=== PATIENT | female | born 1930 | race Caucasian/White ===

== ENCOUNTER 2018-04-07 11:33 | Observation (INO) | payer MEDICARE, OTHER ==
[2018-04-07 11:52] LABS: BASOPHILS % 0.5 (0.0-1.5); EOSINOPHILS % 2.1 % (0.0-6.8); MEAN CORPUSCULAR HEMOGLOBIN 29.7 pg (28.0-34.0); MEAN CORPUSCULAR VOLUME 98.2 fl (80.0-100.0); MONOCYTES % 4.4 % (0.0-11.0)
[2018-04-07 12:05] LABS: eGFR (African) > 60; eGFR (Non-African) > 60
[2018-04-07 12:27] LABS: APPEARANCE,URINE CLOUDY (CLEAR); COLOR,URINE YELLOW (YELLOW); OCCULT BLOOD,URINE TRACE-INTACT (NEGATIVE)
[2018-04-07] MEDS ORDERED: LIDOCAINE 1%/EPINEPHRINE 20ML VIAL IJ ONE ×2 (12:34→12:35)
--- NOTE | 2018-04-07 12:34 | ED Physician Documentation ---
Fall - HISTORIAN Historian: patient - HPI Stated Complaint: Fall with Head Injury Chief Complaint: Fall Onset: today Where: other ([facility]) Context: other (un-witnessed) Injury to Right Extremity: none Injury to Left Extremity: none Further Comments: yes (88 year old female patient brought in from [facility] after a fall. Patient was found on floor by staff. Had been up and walked to breakfast this morning. Baseline - up walking, speaks in 3-4 word sentences, able to feed herself, intermittent confusion per daughter.) - ROS CONST: no problems (Patient unable to contribute to ROS due to altered mental status. ) - PAST HX Past History: A-Fib (chronic,), other (incontinence, CVA 2015, falls, dementia, HLD, insomnia, HTN, frequent UTIs) Allergies/Adverse Reactions: Allergies Allergy/AdvReac Type Severity Reaction Status Date / Time No Known Allergies Allergy Unverified 04/15/14 08:35 Home Medications: Ambulatory Orders Medication Instructions Recorded Acetaminophen [Tylenol] 650 mg PO Q6 PRN 04/07/18 Apixaban [Eliquis] 5 mg PO BID 04/07/18 Melatonin 5 mg PO HS 04/07/18 Metoprolol Succinate [Toprol Xl] 50 mg PO DAILY 04/07/18 Simvastatin [Simvastatin] 40 mg PO HS 04/07/18 - SOCIAL HX Smoking History: non-smoker - FAMILY HX Family History: denies: none - VITAL SIGNS Vital Signs: Vital Signs Temp Pulse Resp BP Pulse Ox 95.7 F L 110 H 16 132/82 93 04/07/18 11:35 04/07/18 12:11 04/07/18 11:35 04/07/18 11:35 04/07/18 12:11 - REVIEWED ASSESSMENTS Nursing Assessment Reviewed: Yes Vitals Reviewed: Yes Procedures Wound Location: face Wound's Depth, Shape: irregular Betadine Prep?: No (chlorhexidine) Anesthesia: Lidocaine w/ Epi Volume of Anesthetic: 4 Wound Repaired With: sutures, steri-strips Suture Size/Type: 6:0 Number of Sutures: 8 Layer Closure?: No Progress: Procedure Note laceration: Length: 2 cm eye laceration Location: lateral to left eye Wound cleaned with chlorhexidine and NS; anesthetized with Lidocaine 1% with epi and Neut - 4cc - patient tolerated well. Irrigated with 200NS; no foreign body noted Closed using sterile technique, interrupted sutures 6.0 ethilon x 5 stitches; additional 3 sutures placed to tack down skin tear; steri strips applied to skin tear Tetanus: Given in ER today Progress - Progress Progress: [address] Garcia for admission - will keep patient as observation; IV antibiotics; PT/OT consult, neuro checks. Remain on tele due to chronic A Fib. Unwitnessed fall; cannot rule out dysrhymia. Daughter at bedside; agrees with admission. - EKG/XRAY/CT EKG: rhythm (AFib; rate 109) ED Results Lab/Radiology - Lab Results Lab Results: Lab Results 04/07/18 04/07/18 04/07/18 12:35 11:45 11:45 WBC 6.85 K/ul K/ul (4.00-12.00) RBC 4.18 M/ul M/ul (3.90-5.20) Hgb 12.4 g/dL g/dL (12.0-16.0) Hct 41.0 % % (34.5-46.5) MCV 98.2 fl fl (80.0-100.0) MCH 29.7 pg pg (28.0-34.0) MCHC 30.3 g/dL g/dL (30.0-36.0) RDW 14.1 % % (11.3-14.3) Plt Count 251 K/mm3 K/mm3 (130-400) Neut % (Auto) 61.0 % % (39.0-79.0) Lymph % (Auto) 30.6 % % (16.0-50.0) Patrick % (Auto) 4.4 % % (0.0-11.0) Eos % (Auto) 2.1 % % (0.0-6.8) Baso % (Auto) 0.5 (0.0-1.5) Neut # (Auto) 6.9 # k/uL # k/uL (1.4-7.7) Lymph # (Auto) 4.2 # k/uL H # k/uL (0.6-4.0) Patrick # (Auto) 2.1 # k/uL H # k/uL (0.0-0.9) Eos # (Auto) 0.3 # k/uL # k/uL (0.0-0.6) Baso # (Auto) 0.2 # k/uL # k/uL (0.0-0.5) Reactive Lymphs % 1.4 % % (0.0-5.0) Reactive Lymphs # 0.1 # k/uL # k/uL (0.0-0.8) Sodium 141 mmol/L mmol/L (136-145) Potassium 4.2 mmol/L mmol/L (3.5-5.1) Chloride 104 mmol/L mmol/L (98-107) Carbon Dioxide 30 mmol/L mmol/L (22-30) BUN 30 mg/dL H mg/dL (7-17) Creatinine 0.70 mg/dL mg/dL (0.52-1.04) Estimated Creat Clear 77 Est GFR ( Amer) > 60 (60 - ) Est GFR (Non-Af Amer) > 60 (60 - ) Glucose 104 mg/dL mg/dL (74-106) Calcium 8.7 mg/dL mg/dL (8.4-10.2) Total Bilirubin 0.3 mg/dL mg/dL (0.2-1.3) AST 23 U/L U/L (15-46) ALT 28 U/L U/L (13-69) Alkaline Phosphatase 79 U/L U/L (38-126) Total Protein 6.9 g/dL g/dL (6.3-8.2) Albumin 3.6 g/dL g/dL (3.5-5.0) Urine Color Yellow (YELLOW) Urine Appearance Cloudy H (CLEAR) Urine pH 7.0 (5.0 - 8.0) Ur Specific Lesage 1.025 (1.010-1.030) Urine Protein Trace mg/dL H mg/dL (NEGATIVE) Urine Ketones Negative mg/dL mg/dL (NEGATIVE) Urine Occult Blood Trace-intact H (NEGATIVE) Urine Nitrite Negative (NEGATIVE) Urine Bilirubin Negative (NEGATIVE) Urine Urobilinogen 1.0 Eu Eu (0.2-1.0) Ur Leukocyte Esterase 1+ H (NEGATIVE) Urine Glucose Negative mg/dL mg/dL (NEGATIVE) - Radiology Radiology Impressions: Examination: CT head without contrast History: FALL TODAY; ALTERED MENTAL STATUS (Hx) Comparison exam: None available are directed view. Technique: Noncontrast head CT protocol. Findings: Ventricles and sulci are prominent. Cerebrocerebellar parenchyma demonstrates periventricular low attenuation consistent with small vessel disease. Moderate low density regions involving the right parietal/occipital lobe. No evidence for parenchymal hemorrhage. No evidence for mass or mass effect. No midline shift. No extra axial fluid collections. Partial visualization of the paranasal sinuses, mastoid air cells, orbits, skull and scalp without gross irregularity. Anterior falx calcifications. Impression: Advanced age related changes with low density areas involving the right parietal/occipital lobe. No hemorrhage. Correlation with older exams recommended, when become available, to confirm stability of the presumed age related changes and old parenchymal infarcts. Electronically signed on Apr 07, 2018 12:24:51 PM CDT by: Stanley Stephenson - Orders Orders: ED Orders Category Date Time Status Cleanse with NS and Chlorhexid 1T Care 04/07/18 11:41 Active Continuous EKG monitoring Q30M Care 04/07/18 11:41 Active Continuous Pulse Oximetry Q30M Care 04/07/18 11:[address] IV Lock 1T Care 04/07/18 11:[address] BRAIN W/O CONTRAST Stat Exams 04/07/18 Ordered CBC/PLATELET/DIFF Stat Lab 04/07/18 11:45 Completed CMP Stat Lab 04/07/18 11:45 Completed UA MACRO DIP ONLY Stat Lab 04/07/18 12:35 Completed URINE CULTURE Stat Lab 04/07/18 12:35 Received Fall Physical Exam - Physical Exam General Appearance: lethargic Head: trauma ( abrasion to left lateral eye; skin tear to left cheek area) Neck: non-tender, painless ROM, trachea midline Eye: STANTON, lids & conjunct. nml ENT: nml external inspection, no dental injury, no oral injury, airway nml Resp/CVS: chest non-tender, no ecchymosis, breath sounds nml, no resp. distress , other (Irregularly irregular - chronic A Fib) Abdomen: soft, no organomegaly, normal bowel sounds, no abdominal bruit, no distension Neuro: other (Gross motor tremor noted; will move upper extremities purposefully , difficulty following commands; speech difficult to understand; ) Skin: pallor, other (poor turgor; 2 cm laceration lateral to left eye; left cheek area with 3cm x 4 cm skin tear) Back: normal inspection Extremities: atraumatic, pelvis stable, hips non-tender, no pedal edema, nml color/temp, other (severe generalized weakness; GONZALES x4; ) - Radha Coma Score Eyes Open: Spontaneous Speech: Confused (4) Motor: Localizes to Pain (5) Discharge Clincal Impression: Atrial fibrillation, Unwitnessed fall Altered mental status Qualifiers: Altered mental status type: disorientation Qualified Code(s): R41.0 - Disorientation, unspecified UTI (urinary tract infection) Qualifiers: Urinary tract infection type: acute cystitis Hematuria presence: with hematuria Qualified Code(s): N30.01 - Acute cystitis with hematuria Referrals: Jasper Garcia MD [Primary Care Provider] - 2 Days Condition: Fair Disposition: 09 ADMITTED INPATIENT Decision to Admit: [id number] Decision Time: 13:15
[2018-04-07] MEDS ORDERED: SODIUM BICARBONATE 2.4 MEQ VIAL INJ ONE (12:35)
[2018-04-07] MEDS ORDERED: cefTRIAXone SODIUM 1 GM in 0.9 % SODIUM CHLORIDE 100 ML IV ONE (13:36)
[2018-04-07] MEDS ORDERED: cefTRIAXone SODIUM 1 GM VIAL ONE (13:40)
[2018-04-07] MEDS ORDERED: DIPH,PERTUSS(ACELL),TET VAC/PF 0.5 ML DISP.SYRIN IM ONE (13:43)
[2018-04-07 14:56] VITALS: BMI 12.2
[2018-04-07] MEDS ORDERED: ACETAMINOPHEN 325 MG TABLET PO PRN (17:01)
--- NOTE | 2018-04-07 17:20 | History and Physical Report ---
History of Present Illnes - History of Present Illness Reason for Visit: Fall/head laceration History of Present Illness: This is an 88 year old female patient of mine from [facility] who had a fall today, and incurred a contusion/laceration to the left side of her head. She was brought to the ER for evaluation and repair of the laceration. In the ER, she had a CT scan of her head, which did not show any intracranial bleeding. She is very confused as is her baseline. Her labs were about at her baseline. She is admitted overnight for observation, with plans for us to discharge her back to the correction in the morning. - Past Medical History Cardiac: AFIB, HTN, Hyperlipidemia AUXILIARY EQUIPMENT OPERATOR: CVA (2015), Dementia, Vertigo Gastrointestinal: Constipation Musculoskeletal: Chronic low back pain, Other (osteoporosis) Renal/: Other (OAB) - Past Surgical History Past Surgical History: Hysterectomy - Past Social History Smoke: No Alcohol: None Drugs: None Lives: With Family () - Health Maintenance Health Maintenance: Cholesterol Influenza Vaccine: Current for this Influenza Season Pneumonia Vaccine: Yes Resuscitation Status: Resusciation Status Resuscitation Status Do Not Resuscitate - Unable to Obtain History Unable to Obtain: Yes Review of Systems - Review of Systems Constitutional: negative: Fever Eyes: negative: pain ENT: negative: Other Respiratory: negative: Other Cardiovascular: negative: Chest Pain Gastrointestinal: negative: Nausea Genitourinary: negative: Dysuria Musculoskeletal: negative: Neck Pain Skin: Rash Neurological: Weakness, Incoordination - Medications/Allergies Allergies/Adverse Reactions: Allergies Allergy/AdvReac Type Severity Reaction Status Date / Time No Known Allergies Allergy Unverified 04/15/14 08:35 Home Medications: Home Medications Acetaminophen [Tylenol] 650 mg PO Q6 PRN 04/07/18 Apixaban [Eliquis] 5 mg PO BID 04/07/18 Melatonin 5 mg PO HS 04/07/18 Metoprolol Succinate [Toprol Xl] 50 mg PO DAILY 04/07/18 Simvastatin [Simvastatin] 40 mg PO HS 04/07/18 Current Inpatient Medications: Current Inpatient Medications Acetaminophen (Tylenol) 650 mg PO Q4H PRN PRN Reason: Fever >101 Ceftriaxone Sodium 1 gm/ (Sodium Chloride) 50 mls @ 100 mls/hr IV Q24H SUDHA Melatonin (Melatonin) 9 mg PO HS SUDHA Metoprolol Succinate (Toprol Xl) 50 mg PO DAILY SUDHA Polyethylene Glycol (Miralax) 17 gm PO 1100 SUDHA Simvastatin (Zocor) 40 mg PO HS SUDHA Sodium Chloride (Normal Saline Flush) 3 ml IV BID SUDHA Exam - Exam Vital Signs: Vital Signs (72 hours) 04/07/18 04/07/18 04/07/18 13:34 13:38 13:50 Temperature 98.1 F Pulse Rate [ 97 H 78 Pulse ox] Respiratory 21 18 Rate Blood Pressure 127/89 118/68 [Right Arm] O2 Sat by Pulse 97 98 97 Oximetry 04/07/18 14:00 Temperature 98.1 F Pulse Rate [ 101 H Pulse ox] Respiratory 20 Rate Blood Pressure 127/89 [Right Arm] O2 Sat by Pulse 97 Oximetry General: Discheveled, Average Body Habits (confused) HEENT: Other (curvilinear laceration over her left cheek. It is well approximated with stitches and steri strips.) Neck: No: Stridor Lungs: Clear to auscultation Cardiovascular: Irregularly Irregular Murmur: Systolic Murmur Murmur Location: Left Sternal Boarder Heart Murmur Grade: II Abdomen: Normal bowel sounds, Soft, Other (some yeast under breasts) Genitourinary: No: Right Inguinal Hernia, Left Inguinal Hernia Male Genitourinary: No: Other Female Genitourinary: No: Other Integumentary: Other (yeast) Extremities: No clubbing, No cyanosis, No edema Neurological: Generalized Weakness Psych/Mental Status: Other (about at baseline) Assessment/Plan - Assessment/Plan (1) Unwitnessed fall Status: Acute Current Visit: Yes Assessment: with facial laceration Plan: Has been repaired in the ER May need to d/c Eliquis (2) Atrial fibrillation Status: Chronic Current Visit: Yes Assessment: Chronic and anticoagulated (3) CVA, old, ataxia Status: Acute Current Visit: No Assessment: Chronic, no intracranial bleeding (4) Dementia Status: Acute Current Visit: No Qualifiers: Dementia type: Alzheimer's disease Dementia behavioral disturbance: without behavioral disturbance Qualified Code(s): F03.90 - Unspecified dementia without behavioral disturbance Assessment: Advanced, progressive VTE Assessment - RISK FACTOR SCORE VTE RISK FACTOR SCORES: AGE OVER 60 YEARS, ANTICIPATED BED CONFINEMENT OR IMMOBILIZATION > 24 HOURS (On Eliquis)
[2018-04-07] MEDS ORDERED: NYSTATIN POWDER BOTTLE TP SCH (18:00)
[2018-04-07] MEDS ORDERED: POLYETHYLENE GLYCOL 3350 17 GM POWD.PACK PO SCH (18:00)
[2018-04-07] MEDS: MELATONIN 3 MG TABLET PO SCH ×2 (18:01→20:28)
--- NOTE | 2018-04-07 18:12 | Diagnostic Imaging Report ---
LUANNE GALVEZ (PUMP ERECTOR) - ER [facility] [address] [facility] [address] [place], [place]. [address] Report Submission Date: Apr 07, 2018 12:24:51 PM CDT Patient Study Name: DELBERT COOL Date: Apr 07, 2018 12:07:03 PM CDT Modality Type: CT\SR Gender: F Description: CT BRAIN W/O CONTRAST : 34 Institution: [facility] Physician: LUANNE GALVEZ (PUMP ERECTOR) - ER Examination: CT head without contrast History: FALL TODAY; ALTERED MENTAL STATUS (Hx) Comparison exam: None available are directed view. Technique: Noncontrast head CT protocol. Findings: Ventricles and sulci are prominent. Cerebrocerebellar parenchyma demonstrates periventricular low attenuation consistent with small vessel disease. Moderate low density regions involving the right parietal/occipital lobe. No evidence for parenchymal hemorrhage. No evidence for mass or mass effect. No midline shift. No extra axial fluid collections. Partial visualization of the paranasal sinuses, mastoid air cells, orbits, skull and scalp without gross irregularity. Anterior falx calcifications. Impression: Advanced age related changes with low density areas involving the right parietal/occipital lobe. No hemorrhage. Correlation with older exams recommended, when become available, to confirm stability of the presumed age related changes and old parenchymal infarcts. Electronically signed on Apr 07, 2018 12:24:51 PM CDT by: Stanley QUEZADA
[2018-04-07] MEDS: APIXABAN 2.5 MG TABLET PO SCH (20:24)
[2018-04-07] MEDS ORDERED: NYSTATIN POWDER BOTTLE TP ONE (20:29)
[2018-04-07] MEDS: SALINE FLUSH 10 ML DISP.SYRIN IV SCH (20:33)
[2018-04-07] MEDS ORDERED: SIMVASTATIN 40 MG TABLET PO SCH (21:00)
--- NOTE | 2018-04-08 08:54 | Discharge Summary ---
Discharge Summary - Discharge Sumary Condition at Discharge: Stable Home Medications: Ambulatory Orders Medication Instructions Recorded Acetaminophen [Tylenol] 650 mg PO Q6 PRN 04/07/18 Apixaban [Eliquis] 5 mg PO BID 04/07/18 Melatonin 5 mg PO HS 04/07/18 Metoprolol Succinate [Toprol Xl] 50 mg PO DAILY 04/07/18 Simvastatin [Simvastatin] 40 mg PO HS 04/07/18 Consultations this Visit: None Procedures this Visit: Suture Allergies/Adverse Reactions: Allergies Allergy/AdvReac Type Severity Reaction Status Date / Time No Known Allergies Allergy Unverified 04/15/14 08:35 Patient Problems: Current Active Problems Problem Status Onset Mental status change Acute Unwitnessed fall Acute Urinary tract infection Acute Atrial fibrillation Chronic Discharge Summary: 88 year old female admitted for observation yesterday after a fall at [facility] and incurring a left facial laceration. It was repaired in the ER by MAUDE Harris, and CT was done which showed no intracranial bleeding. Her night was unremarkable, and she was discharged back to [facility], with resumption of all of her medications as prior to admission. I'll see her for follow up next week. - Final Diagnosis (1) Unwitnessed fall Problems: With left facial laceration (2) Atrial fibrillation Problems: Chronic, currently with good rate control and anticoagulated (3) CVA, old, ataxia Problems: Chronic (4) Dementia Problems: Chronic and progressive
[2018-04-08] MEDS ORDERED: METOPROLOL SUCCINATE 50 MG TAB.ER.24H PO SCH (09:00)
[2018-04-08] MEDS ORDERED: NYSTATIN POWDER BOTTLE TP SCH (09:00)
[2018-04-08 09:21] VITALS: BP 132/61
[2018-04-08] MEDS ORDERED: cefTRIAXone SODIUM 1 GM in 0.9 % SODIUM CHLORIDE 50 ML IV SCH (10:00)
[2018-04-08] MEDS ORDERED: cefTRIAXone SODIUM 1 GM VIAL ONE (10:10)
[2018-04-08] MEDS: APIXABAN 2.5 MG TABLET PO SCH (10:15)
[2018-04-08] MEDS: SALINE FLUSH 10 ML DISP.SYRIN IV SCH (10:15)
[2018-04-08] MEDS ORDERED: POLYETHYLENE GLYCOL 3350 17 GM POWD.PACK PO SCH (11:00)
[2018-04-10 09:36] LABS: NEUTROPHILS # 4.2 # k/uL (1.4-7.7)
== END 2018-04-08 11:10 | disposition home or self-care (01) ==
LOC: ED 11:33 → SOUTH 13:20
PROVIDERS: ADMIT Family Medicine; ATTEND Family Medicine
DX: S01.112A Laceration without foreign body of left eyelid and periocular area, initial encounter (principal); W19.XXXA Unspecified fall, initial encounter; Y93.9 Activity, unspecified; Y92.129 Unspecified place in nursing home as the place of occurrence of the external cause; I48.91 Unspecified atrial fibrillation; E78.5 Hyperlipidemia, unspecified; I10 Essential (primary) hypertension; F03.90 Unspecified dementia, unspecified severity, without behavioral disturbance, psychotic disturbance, mood disturbance, and anxiety; R41.0 Disorientation, unspecified; N30.01 Acute cystitis with hematuria; I69.893 Ataxia following other cerebrovascular disease
CPT/HCPCS: 12011; 51701; 70450; 80053; 81002; 85025; 87086; 87186; 90471; 90715; 93005; 96365; 99285; G0378; J0696; J7030; 99217; 99219; S1016